=== PATIENT | female | born 1955 | race Caucasian/White ===

== ENCOUNTER 2016-08-01 08:13 | Emergency (ER) | payer OTHER ==
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
--- NOTE | 2016-08-01 17:49 | ED MAR SUMMARY ---
..... Medication Administration Record [facility] [address] [place], [place] [id number] Patient: TRAVIS YIP Visit ID: [id number] 61y, F Weight: 106.5 kg Height/Length: 63 in BMI: 41.6 ALLERGIES: Tetracycline, Erythromycin, Keflex, Penicillin, Ke
--- NOTE | 2016-08-01 17:49 | ED MED RECONCILIATION SUMMARY ---
Patient: TRAVIS YIP Medication Reconciliation Report [facility] VisitID: [id number] [address] [place] [address] 61y, F Registration Date/Time: 08/01/2016 Weight: 106.5 kg Height/Length: 63 in. BMI: 41.6 ALLERGIES: Erythromycin, Ke, Keflex, Penicillin, Tetracycline The patient's Home Medications are listed below: THE FOLLOWING MEDICATIONS NEED TO BE RECONCILED: Esomeprazole mag 40 mg tab daily Levothyroxin 100 mg tab daily Lisinporil 20 mg tab daily Montelukast 10 mg tab daily Oxybutynin 5 mg tab bid Paroxetine 40 mg tab daily Risperidone 0.5 mg tab daily Simvastatin 10 mg tab daily Stool softener 100 mg 2 tabs daily Tramterene/hctz 37.5-25 mg tab daily vitamin b12 1000 mg daily The source(s) of the original Home Medication information: Not obtained. The following Medications were given to the patient in the Emergency Department: None. The following Medications were prescribed to the patient: None.
--- NOTE | 2016-08-01 17:49 | ED MAR SUMMARY ---
..... Medication Administration Record [facility] [address] [place], [place] [id number] Patient: TRAVIS YIP Visit ID: [id number] 61y, F Weight: 106.5 kg Height/Length: 63 in BMI: 41.6 ALLERGIES: Tetracycline, Erythromycin, Keflex, Penicillin, Ke
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
--- NOTE | 2016-08-01 17:49 | ED MED RECONCILIATION SUMMARY ---
Patient: TRAVIS YIP Medication Reconciliation Report [facility] VisitID: [id number] [address] [place] [address] 61y, F Registration Date/Time: 08/01/2016 Weight: 106.5 kg Height/Length: 63 in. BMI: 41.6 ALLERGIES: Erythromycin, Ke, Keflex, Penicillin, Tetracycline The patient's Home Medications are listed below: THE FOLLOWING MEDICATIONS NEED TO BE RECONCILED: Esomeprazole mag 40 mg tab daily Levothyroxin 100 mg tab daily Lisinporil 20 mg tab daily Montelukast 10 mg tab daily Oxybutynin 5 mg tab bid Paroxetine 40 mg tab daily Risperidone 0.5 mg tab daily Simvastatin 10 mg tab daily Stool softener 100 mg 2 tabs daily Tramterene/hctz 37.5-25 mg tab daily vitamin b12 1000 mg daily The source(s) of the original Home Medication information: Not obtained. The following Medications were given to the patient in the Emergency Department: None. The following Medications were prescribed to the patient: None.
== END 2016-08-01 08:45 | disposition home or self-care (01) ==
LOC: ED SRH 08:13
DX: S63.501A Unspecified sprain of right wrist, initial encounter (principal); S63.642A Sprain of metacarpophalangeal joint of left thumb, initial encounter; V47.5XXA Car driver injured in collision with fixed or stationary object in traffic accident, initial encounter; Y93.9 Activity, unspecified; Y92.410 Unspecified street and highway as the place of occurrence of the external cause; Y99.9 Unspecified external cause status; I10 Essential (primary) hypertension; Z79.899 Other long term (current) drug therapy; Z88.1 Allergy status to other antibiotic agents; Z88.0 Allergy status to penicillin